=== PATIENT | female | born 1980 | race Caucasian/White ===

== ENCOUNTER 2018-09-11 17:59 | Emergency (ER) | payer BC, OTHER ==
[~2018-09-11] VITALS: Ht 175.3 cm; Wt 81.6 kg
[2018-09-11 18:52] LABS: BASOPHILS # (AUTO) 0.1 (0.0-0.1); BASOPHILS % 0.7 % (0.0-1.0); EOSINOPHILS # (AUTO) 0.1 (0.0-0.4); HEMATOCRIT 43.4 % (34.2-44.1); HEMOGLOBIN 13.9 g/dL (12.0-16.0); LYMPHOCYTES # (AUTO) 2.3 (1.0-3.2); LYMPHOCYTES % 21.3 % (18.0-39.1); MEAN CORPUSCULAR HEMOGLOBIN 28.6 pg (28-32); MEAN CORPUSCULAR VOLUME 89.3 fL (81-99); MONOCYTES # (AUTO) 0.8 (0.2-0.8); MONOCYTES % 7.1 % (4.4-11.3); NEUTROPHILS # (AUTO) 7.4 (2.1-6.9); NEUTROPHILS % 69.5 % (38.7-80.0); PLATELET COUNT 243 x10e3/uL (140-360); RED BLOOD COUNT 4.86 x10e6/uL (3.6-5.1); RED CELL DISTRIBUTION WIDTH 13.5 % (11.7-14.4)
[2018-09-11 18:59] LABS: PREGNANCY TEST, URINE NEGATIVE (NEGATIVE)
[2018-09-11 19:05] LABS: BILIRUBIN,URINE NEGATIVE (NEGATIVE); CLARITY,URINE CLEAR (CLEAR); COLOR,URINE YELLOW (YELLOW); KETONES,URINE NEGATIVE (NEGATIVE); LEUKOCYTE ESTERASE ,URINE NEGATIVE (NEGATIVE); NITRITE,URINE NEGATIVE (NEGATIVE); PROTEIN,URINE DIPSTICK NEGATIVE (NEGATIVE); URINE UROBILINOGEN 0.2 mg/dL (0.2 - 1)
[2018-09-11 19:06] LABS: AMORPHOUS SEDIMENT,URINE MODERATE (FEW); BACTERIA,URINE RARE /HPF; EPITHELIAL CELLS,URINE FEW /LPF
[2018-09-11 19:13] LABS: ALBUMIN 3.3 g/dL (3.5-5.0); ALBUMIN/GLOBULIN RATIO 0.8 (0.8-2.0); ANION GAP 11.7 mmol/L (8-16); CALCIUM 8.9 mg/dL (8.4-10.2); CREATININE, SERUM 1.03 mg/dL (0.57-1.11); POTASSIUM 3.7 mmol/L (3.5-5.1)
[2018-09-11 19:24] LABS: CREATINE KINASE MB 0.2 ng/mL (0-5.0)
--- NOTE | 2018-09-11 20:14 | Diagnostic Imaging Report ---
EXAMINATION: CHEST SINGLE (NOT PORTABLE) COMPARISON: None INDICATION: Chest heaviness, shortness of breath, nausea ^ERMD ORDER ^[id number] ^1900 ^Y DISCUSSION: Frontal view of the chest obtained at 1851 hours. HEART AND MEDIASTINUM: The cardiomediastinal silhouette is unremarkable. LINES: None. LUNGS: The lungs are well inflated and clear. No pneumonia or pulmonary edema. PLEURA: No pleural effusion or pneumothorax. BONES AND SOFT TISSUES: No focal osseous lesion. The soft tissues are normal. IMPRESSION: No acute cardiopulmonary disease. Signed by: Dr. Ivonne Scott MD on 09/11/2018 8:11 PM
--- NOTE | 2018-09-11 21:23 | Diagnostic Imaging Report ---
CT chest pulmonary embolism protocol CPT code: 66818 INDICATION: Lethargy, chest heaviness tachycardia ^pe protocol TECHNIQUE: Thin collimation axial images obtained through the level of the pulmonary arteries with additional imaging through the chest following the uneventful administration of 100 cc of low osmolar, nonionic intravenous contrast. Images reconstructed into coronal and sagittal MIPs for complete evaluation of the tortuous and overlapping pulmonary vascular structures and to reduce patient radiation dose. RADIATION DOSE: Total DLP: 494.98 mGy*cm Estimated effective dose: (DLP x 0.015 x size factor) mSv CTDIvol has been reviewed. It is below the limits set by the Radiation Protocol Committee (RPC). Dose reduction techniques used: Automated exposure control, adjustment of the mAs and/or kVp according to patient size, standardized low-dose protocol, and/or iterative reconstruction technique. COMPARISON: None. FINDINGS: Images are mildly motion degraded. Pulmonary artery: No filling defects are appreciated within the main, left, right, lobar or visualized segmental pulmonary arteries to suggest embolism. Main pulmonary artery measures 2.6 cm in diameter. Aorta: The thoracic aorta is not aneurysmal. No evidence for dissection. Lymph nodes: No enlarged axillary, supraclavicular, mediastinal, or hilar lymph nodes. Thyroid: Normal in size with a 5 mm nodule in the posterior left lobe.. Mediastinum: The heart is top normal in size. No pericardial effusion. The esophagus is collapsed. Lungs: Right Lung: Trace apical pleural parenchymal thickening No consolidation. Minimal posterior atelectasis. No nodules. Left Lung: Trace apical pleural-parenchymal thickening. Mild dependent microatelectasis. No nodules. No consolidation. Airways: Mild tracheobronchomalacia. No intraluminal filling defects. Pleura: No pleural effusion or pleural based mass.. Abdomen: Visualized portion of the upper abdomen demonstrates a lobulated cyst in the right lobe of the liver measuring 2.2 cm. Visualized portions of the pancreas, spleen, adrenal glands, and kidneys are unremarkable. Bones: Mild levoscoliosis. There is left unilateral expansion of the left chest wall without focal rib abnormality. There are no focal osseous lesions. Soft tissues: Unremarkable.. IMPRESSION: 1. Mildly motion degraded exam. No evidence of pulmonary embolus or aortic dissection. 2. Mild tracheobronchomalacia. Please correlate for history of small airways disease. Mild dependent microatelectasis. No consolidation. 3. Lobulated hepatic cyst. This can be further characterized with abdominal ultrasound on an outpatient basis. Signed by: Dr. Ivonne Scott MD on 09/11/2018 9:20 PM
[2018-09-12] MEDS ORDERED: IOPAMIDOL 370 MG/ML 200 ML INFUS..BTL INJ ONE (01:00)
[2018-09-12] MEDS ORDERED: SODIUM CHLORIDE 0.9% 50ML 50 ML ONE (01:00)
== END 2018-09-11 22:25 | disposition home or self-care (01) ==
LOC: ER 17:59
DX: R00.2 Palpitations (principal); Z88.6 Allergy status to analgesic agent; Z82.49 Family history of ischemic heart disease and other diseases of the circulatory system; Z87.440 Personal history of urinary (tract) infections
CPT/HCPCS: 36415; 71045; 71260; 80053; 81001; 81025; 82550; 82553; 84484; 85025; 85379; 87086; 93005; 99284